=== PATIENT | female | born 1950 | race Caucasian/White ===

== ENCOUNTER → 2018-06-16 03:29 | Outpatient (CLI) | payer MEDICARE, OTHER, SELFPAY ==
[2018-06-16 10:52] LABS: Abs Immature Grans 0.01 k/cumm (0.0-0.09); Absolute Basophil Count 0.15 k/cumm (0.0-0.2); Absolute Eosinophil Count 0.79 k/cumm (0.0-0.7); Absolute Lymphocyte Count 2.09 k/cumm (1.2-3.4); Absolute Monocyte Count 0.51 k/cumm (0.11-0.7); Absolute Neutrophil Count 4.79 k/cumm (1.2-6.7); Basophils % 1.8; Eosinophils % 9.5; HCT 36.1 % (36.0-46.0); HGB 11.7 g/dL (12.0-15.5); Immature Grans % 0.1; Lymphocytes % 25.1; Mean Corp. HGB Concentration 32.4 g/dL (32.0-36.0); Mean Corpuscular Hemoglobin 28.8 pg (27.0-33.0); Mean Corpuscular Volume 88.9 fL (80-95); Mean Platelet Volume 10.4 fL (8.0-11.0); Monocytes % 6.1; Neutrophils % 57.4; Platelet Count 387 x1000/uL (130-400); RBC 4.06 m/cumm (4.00-5.20); RBC Distribution Width 13.9 % (11.7-14.6); White Blood Cell Count 8.34 k/cumm (4.4-10.8)
[2018-06-16 11:16] LABS: ALT 32 U/L (12-78); AST 21 U/L (15-37); Albumin 3.3 g/dL (3.4-5.0); Alkaline Phosphatase 103 U/L (46-116); Anion Gap 8.3 mmol/L (3-11); BUN 14 mg/dL (7-18); Bilirubin, Total 0.3 mg/dL (0.2-1.0); CO2 29.7 mmol/L (21.0-32.0); CREATININE 0.77 mg/dL (0.55-1.02); Calcium 8.6 mg/dL (8.5-10.1); Chloride 106 mmol/L (98-107); Cholesterol 326 mg/dL (50-200); Glucose 118 mg/dL (70-100); HDL Cholesterol 48 mg/dL (40-60); LDL CHOLESTEROL 242 mg/dL (<100); Potassium 3.4 mmol/L (3.5-5.1); Sodium 144 mmol/L (136-145); TSH (W/Ref FT4) 0.03 uIU/mL (0.358-3.74); Total Protein 6.6 g/dL (6.4-8.2); Triglyceride 159 mg/dL (30-150)
[2018-06-16 11:33] LABS: FREE T4 1.07 ng/dL (0.76-1.46)
== END ==
PROVIDERS: PCP Internal Medicine; Visit Provider Internal Medicine
DX: E78.5 Hyperlipidemia, unspecified (principal); R94.6 Abnormal results of thyroid function studies; I10 Essential (primary) hypertension; D64.9 Anemia, unspecified
CPT/HCPCS: 36415; 80053; 80061; 83721; 84439; 84443; 85025

== ENCOUNTER 2018-08-03 00:34 | Outpatient (CLI) | payer MEDICARE, OTHER, SELFPAY ==
--- NOTE | 2018-08-03 13:30 | DI.MAMMO_ITS ---
SYMPTOM/DIAGNOSIS: SCREENING, Z12.31 MAMMOGRAMS: Mammograms were interpreted according to the usual protocol including computer analysis with CAD system, tomosynthesis and C view imaging. Comparison with prior examinations Breast density B. No masses or microcalcifications are seen. There is nothing to suggest malignancy. IMPRESSION: Negative mammogram. Routine screening is recommended. Category I. MQSA ASSESSMENT OF FINDINGS: Negative. Category 1. Patient will receive a letter notifying them of these results. BI-RADS category B. There are scattered areas of fibroglandular density.
== END 2018-08-03 00:54 ==
PROVIDERS: PCP Internal Medicine; Visit Provider Internal Medicine
DX: Z12.31 Encounter for screening mammogram for malignant neoplasm of breast (principal)
CPT/HCPCS: 77063; 77067

== ENCOUNTER 2018-08-05 11:33 | Outpatient (CLI) | payer MEDICARE, OTHER, SELFPAY ==
--- NOTE | 2018-08-05 06:00 | DI.RAD_ITS ---
SYMPTOM/DIAGNOSIS: LUMBAR RADICULOPATHY PAIN CLINIC: Fluoroscopy Time: 18.3 SECS Images submitted from the Pain Clinic demonstrate needle positioning over the midline at the level of L5-S1 in conjunction with an injection carried out by Dr. Jarrett. Please see the procedure report for further information.
[2018-08-05 11:41] VITALS: BP 143/79; PULSE 81; RESP 18; TEMP 36.6; O2SAT 96
[2018-08-05] MEDS: methylPREDNISolone ACETATE 40 MG/ML VIAL IM (12:40)
[2018-08-05] MEDS: Omnipaque 240 MG/ML 50 ML BTL IJ (12:41)
[2018-08-05 12:43] VITALS: BP 158/79; PULSE 80; RESP 19; O2SAT 100
--- NOTE | 2018-08-05 12:43 | PDOC.PAIN ---
Pain Clinic Procedure Note Current Active Problems Problem Status Onset Spinal stenosis of lumbar region Chronic Lumbar radiculopathy Chronic CAUDAL EPIDURAL STEROID WITH CATHETER INJECTION PROCEDURE NOTE COMMENTS: Patient has severe spinal stenosis at L5-S1. She has had several epidural injections which have helped somewhat. The last one was painful and has not worked as well as. I reviewed her MRI from 2016 with her and she does central and foraminal stenosis on the left.. HARMAN KNOWLES has been referred to the [facility] for lumbar epidural steroid injection. Patient was greeted by the nurse who verified patients name and . Patient was then taken to the fluoroscopy suite. Patient was interviewed and the medical record reviewed. There were no medical, pharmacologic, radiographic, or other structural contraindications to attempting fluoroscopically guided lumbar epidural steroid injection. Risks and expected side effects as well as potential benefits of the procedure were reviewed and voiced concerns addressed. The patient consent form was signed and witnessed. Standard time-out procedure was performed. Patient was placed in the prone position on the fluoroscopy table and automated blood pressure cuff and pulse oximeter applied. The skin entry point for entering/approaching the epidural space by a {sacral hiatus} and marked. Following thorough chlorhexadine preparation of the skin and draping and 1% lidocaine infiltration of the skin entry point and subcutaneous tissues, a 17 gauge Touhy needle was placed under fluoroscopic guidance and with loss of resistance technique into the epidural space. Needle tip placement and depth were aided and confirmed by fluoroscopy. There was no paresthesia or return of blood or CSF through the needle. An Arrow cath was thread to the {L5 midline} and 1 cc's of Omnipaque 240 was injected with clear epidural spread confirmed with fluoroscopy. 80mg depomedrol was injected. There was not any unusual discomfort expressed. Vital signs were stable throughout the procedure and were as recorded in nursing records. Follow up plans and appointments were discussed.Post procedure instruction was given as documented in nursing records and having met discharge criteria and was discharged from the [facility]. COMMENTS: Patient will follow-up as needed. She gets good long-lasting relief I told her these can be repeated. She is other symptoms I suggested she see 1 of the spine surgeons at [facility] or spine surgeon of her choice. He will need an updated MRI of lumbar spine if that is the case.
--- NOTE | 2018-08-05 12:47 | PDOC.PAIN_ITS ---
Pain Clinic Procedure Note Current Active Problems Problem Status Onset Spinal stenosis of lumbar region Chronic Lumbar radiculopathy Chronic CAUDAL EPIDURAL STEROID WITH CATHETER INJECTION PROCEDURE NOTE COMMENTS: Patient has severe spinal stenosis at L5-S1. She has had several epidural injections which have helped somewhat. The last one was painful and has not worked as well as. I reviewed her MRI from 2016 with her and she does central and foraminal stenosis on the left.. HARMAN KNOWLES has been referred to the [facility] for lumbar epidural steroid injection. Patient was greeted by the nurse who verified patients name and . Patient was then taken to the fluoroscopy suite. Patient was interviewed and the medical record reviewed. There were no medical , pharmacologic, radiographic, or other structural contraindications to attempting fluoroscopically guided lumbar epidural steroid injection. Risks and expected side effects as well as potential benefits of the procedure were reviewed and voiced concerns addressed. The patient consent form was signed and witnessed. Standard time-out procedure was performed. Patient was placed in the prone position on the fluoroscopy table and automated blood pressure cuff and pulse oximeter applied. The skin entry point for entering/approaching the epidural space by a {sacral hiatus} and marked. Following thorough chlorhexadine preparation of the skin and draping and 1% lidocaine infiltration of the skin entry point and subcutaneous tissues, a 17 gauge Touhy needle was placed under fluoroscopic guidance and with loss of resistance technique into the epidural space. Needle tip placement and depth were aided and confirmed by fluoroscopy. There was no paresthesia or return of blood or CSF through the needle. An Arrow cath was thread to the {L5 midline} and 1 cc's of Omnipaque 240 was injected with clear epidural spread confirmed with fluoroscopy. 80mg depomedrol was injected. There was not any unusual discomfort expressed. Vital signs were stable throughout the procedure and were as recorded in nursing records. Follow up plans and appointments were discussed.Post procedure instruction was given as documented in nursing records and having met discharge criteria and was discharged from the [facility]. COMMENTS: Patient will follow-up as needed. She gets good long-lasting relief I told her these can be repeated. She is other symptoms I suggested she see 1 of the spine surgeons [place] [facility] [place] spine surgeon of her choice. He will need an updated MRI of lumbar spine if that is the case.
== END 2018-08-05 11:53 ==
PROVIDERS: PCP Internal Medicine; Visit Provider Anesthesiology Pain Medicine
DX: M54.16 Radiculopathy, lumbar region (principal); M48.061 Spinal stenosis, lumbar region without neurogenic claudication; G89.29 Other chronic pain
CPT/HCPCS: 62323; 72100; J1030; Q9967

== ENCOUNTER 2018-12-09 11:26 | Outpatient (CLI) | payer MEDICARE, OTHER, SELFPAY ==
[2018-12-09 13:04] LABS: Abs Immature Grans 0.01 k/cumm (0.0-0.09); Absolute Basophil Count 0.15 k/cumm (0.0-0.2); Absolute Eosinophil Count 0.62 k/cumm (0.0-0.7); Absolute Lymphocyte Count 2.41 k/cumm (1.2-3.4); Absolute Monocyte Count 0.52 k/cumm (0.11-0.7); Absolute Neutrophil Count 4.47 k/cumm (1.2-6.7); Basophils % 1.8; Eosinophils % 7.6; HCT 36.7 % (36.0-46.0); HGB 11.6 g/dL (12.0-15.5); Immature Grans % 0.1; Lymphocytes % 29.5; Mean Corp. HGB Concentration 31.6 g/dL (32.0-36.0); Mean Corpuscular Hemoglobin 28.2 pg (27.0-33.0); Mean Corpuscular Volume 89.3 fL (80-95); Mean Platelet Volume 10.3 fL (8.0-11.0); Monocytes % 6.4; Neutrophils % 54.6; Platelet Count 389 x1000/uL (130-400); RBC 4.11 m/cumm (4.00-5.20); RBC Distribution Width 13.4 % (11.7-14.6); White Blood Cell Count 8.18 k/cumm (4.4-10.8)
[2018-12-09 13:10] LABS: ALT 26 U/L (12-78); AST 16 U/L (15-37); Albumin 3.3 g/dL (3.4-5.0); Alkaline Phosphatase 107 U/L (46-116); Anion Gap 9.2 mmol/L (3-11); BUN 16 mg/dL (7-18); Bilirubin, Total 0.2 mg/dL (0.2-1.0); CO2 28.8 mmol/L (21.0-32.0); CREATININE 0.74 mg/dL (0.55-1.02); Calcium 9.1 mg/dL (8.5-10.1); Chloride 106 mmol/L (98-107); Glucose 94 mg/dL (70-100); Potassium 4.3 mmol/L (3.5-5.1); Sodium 144 mmol/L (136-145); TSH (W/Ref FT4) 0.03 uIU/mL (0.358-3.74); Total Protein 6.8 g/dL (6.4-8.2)
[2018-12-09 13:28] LABS: FREE T4 1.04 ng/dL (0.76-1.46)
[2018-12-09 14:13] LABS: ESR 40 MM/HR (0-30)
[2018-12-09 17:39] LABS: Cholesterol 320 mg/dL (50-200); HDL Cholesterol 49 mg/dL (40-60); LDL CHOLESTEROL 230 mg/dL (<100); Triglyceride 175 mg/dL (30-150)
== END 2018-12-09 11:46 ==
PROVIDERS: PCP Internal Medicine; Visit Provider Internal Medicine
DX: D64.9 Anemia, unspecified (principal); E87.6 Hypokalemia; E78.5 Hyperlipidemia, unspecified; R79.89 Other specified abnormal findings of blood chemistry; G89.29 Other chronic pain
CPT/HCPCS: 36415; 80053; 80061; 83721; 85652; 84439; 84443; 85025

== ENCOUNTER 2019-03-30 11:27 | Outpatient (CLI) | payer MEDICARE, OTHER, SELFPAY ==
--- NOTE | 2019-03-30 06:00 | DI.RAD_ITS ---
SYMPTOMS/DIAGNOSIS: LUMBAR RADICULOPATHY PAIN CLINIC LUMBAR SPINE: Fluoroscopy Time: 17.6 sec Images submitted from the Pain Clinic demonstrate positioning of a needle over the midline at the level of L5-S1 with injection of contrast material in conjunction with a lumbar epidural steroid injection.
[2019-03-30 11:58] VITALS: BP 158/89; PULSE 74; RESP 18; TEMP 36.3; O2SAT 97
[2019-03-30] MEDS: methylPREDNISolone ACETATE 40 MG/ML VIAL IJ (12:16)
[2019-03-30 12:20] VITALS: BP 158/98; PULSE 67; RESP 15; O2SAT 97
[2019-03-30] MEDS: Omnipaque 240 MG/ML 50 ML BTL IJ (12:20)
--- NOTE | 2019-03-30 12:25 | PDOC.PAIN_ITS ---
Pain Clinic Procedure Note Current Active Problems Problem Status Onset Lumbar radiculopathy Chronic Lumbar Epidural Steroid Injection Procedure Note COMMENTS: She has done very well with LESIs in the past, getting about 6-9 months of relief each time. HARMAN KNOWLES has been referred to the [facility] for lumbar epidural steroid injection. The patient was greeted by the nurse who verified patients name and . Patient was then taken to the fluoroscopy suite. The patient was interviewed and the medial record reviewed. There were no medical, pharmacologic, radiographic, or other structural contraindications to attempting fluoroscopically guided lumbar epidural steroid injection. Risks and expected side effects as well as potential benefits of the procedure were reviewed and voiced concerns expressed. The patient consent form was signed and witnessed. Standard patient time-out procedure was performed. The patient was placed in the prone position on the fluoroscopy table and automated blood pressure cuff and pulse oximeter applied. The skin entry point for entering/approaching the epidural space at L5-S1 and marked. Following thorough chlorhexadine preparation of the skin and draping and 1% lidocaine infiltration of the skin entry point and subcutaneous tissues, a 18 gauge Touhy needle was placed under fluoroscopic guidance and with loss of resistance technique into the epidural space. Needle tip placement and depth were aided and confirmed by fluoroscopy. There was no paresthesia or return of blood or CSF through the needle. 1 cc's of Omnipaque 240 was injected with clear epidural spr ead confirmed with fluoroscopy. 80mg depomedrol was injected. There was not any unusual discomfort expressed by HARMAN KNOWLES. Patient's vital signs were stable throughout the procedure and were as recorded in nursing records. Follow up plans and appointments were discussed with patient. Post procedure instruction was given as documented in nursing records and having met discharge criteria and was discharged from the [facility]. COMMENTS: This procedure can be completed up to 3 times per 12 months.
== END 2019-03-30 11:47 ==
PROVIDERS: PCP Internal Medicine; Visit Provider Preventive Medicine Occupational Medicine
DX: M54.16 Radiculopathy, lumbar region (principal)
CPT/HCPCS: 62323; 72100; J1030; Q9967

== ENCOUNTER 2019-11-15 10:03 | Outpatient (CLI) | payer MEDICARE, OTHER, SELFPAY ==
[2019-11-15 12:53] LABS: Abs Immature Grans 0.01 k/cumm (0.0-0.09); Absolute Basophil Count 0.19 k/cumm (0.0-0.2); Absolute Eosinophil Count 0.51 k/cumm (0.0-0.7); Absolute Lymphocyte Count 2.46 k/cumm (1.2-3.4); Absolute Monocyte Count 0.67 k/cumm (0.11-0.7); Absolute Neutrophil Count 4.83 k/cumm (1.2-6.7); Basophils % 2.2; Eosinophils % 5.9; HCT 37.5 % (36.0-46.0); HGB 11.9 g/dL (12.0-15.5); Immature Grans % 0.1 %; Lymphocytes % 28.4; Mean Corp. HGB Concentration 31.7 g/dL (32.0-36.0); Mean Corpuscular Hemoglobin 28.4 pg (27.0-33.0); Mean Corpuscular Volume 89.5 fL (80-95); Mean Platelet Volume 10.4 fL (8.0-11.0); Monocytes % 7.7; Neutrophils % 55.7; Platelet Count 405 x1000/uL (130-400); RBC 4.19 m/cumm (4.00-5.20); RBC Distribution Width 13.6 % (11.7-14.6); White Blood Cell Count 8.67 k/cumm (4.4-10.8)
[2019-11-15 14:44] LABS: ALT 20 U/L (14-59); AST 15 U/L (15-37); Albumin 3.5 g/dL (3.4-5.0); Alkaline Phosphatase 122 U/L (46-116); Anion Gap 9.3 mmol/L (3-11); BUN 18 mg/dL (7-18); Bilirubin, Total 0.3 mg/dL (0.2-1.0); CO2 28.7 mmol/L (21.0-32.0); CREATININE 0.76 mg/dL (0.55-1.02); Calcium 9.2 mg/dL (8.5-10.1); Calculated LDL 240 mg/dL; Chloride 105 mmol/L (98-107); Cholesterol 310 mg/dL (<200); Glucose 92 mg/dL (74-106); HDL Cholesterol 44 mg/dL (40-60); Potassium 4.3 mmol/L (3.5-5.1); Sodium 143 mmol/L (136-145); TSH (W/Ref FT4) 0.04 uIU/mL (0.36-3.74); Total Protein 6.9 g/dL (6.4-8.2); Triglyceride 132 mg/dL (<150)
[2019-11-16 15:06] LABS: FREE T4 1.01 ng/dL (0.76-1.46)
== END 2019-11-15 10:23 ==
PROVIDERS: PCP Internal Medicine; Visit Provider Internal Medicine
DX: I10 Essential (primary) hypertension (principal); R50.9 Fever, unspecified; G89.29 Other chronic pain
CPT/HCPCS: 36415; 80053; 80061; 84439; 84443; 85025

== ENCOUNTER 2020-05-11 10:48 | Outpatient (REF) | payer MEDICARE, OTHER, SELFPAY ==
[2020-05-11 13:42] LABS: *AMPHETAMINES SCREEN URINE Negative (Negative); *BARBITURATES SCREEN URINE Negative (Negative); *BENZODIAZEPINES SCREEN URINE Negative (Negative); Cannabinoids THC Negative (Negative); Cocaine Screen,Urine Negative (Negative); METHADONE URINE SCREEN Negative (Negative); OPIATES URINE SCREEN Negative (Negative)
[2020-05-11 13:46] LABS: Tricyclic Antidepressants Negative (Negative)
== END 2020-05-11 11:08 ==
LOC: LBN 10:48
PROVIDERS: PCP Nurse Practitioner; Visit Provider Nurse Practitioner
DX: G89.4 Chronic pain syndrome (principal)
CPT/HCPCS: 80307

== ENCOUNTER 2020-11-27 02:45 | Outpatient (CLI) | payer MEDICARE, OTHER, SELFPAY ==
[2020-11-27 09:20] LABS: Hemoglobin A1C 6.6 % (<5.7)
[2020-11-27 09:59] LABS: CREATININE 0.74 mg/dL (0.55-1.02); Calculated LDL 146 mg/dL (<100); Cholesterol 225 mg/dL (<200); HDL Cholesterol 50 mg/dL (40-60); Potassium 4.2 mmol/L (3.5-5.1); Triglyceride 147 mg/dL (<150)
== END 2020-11-27 03:05 ==
PROVIDERS: PCP Nurse Practitioner; Visit Provider Nurse Practitioner
DX: I10 Essential (primary) hypertension (principal); R73.03 Prediabetes
CPT/HCPCS: 36415; 80061; 82565; 83036; 84132

== ENCOUNTER 2021-02-26 03:18 | Outpatient (CLI) | payer MEDICARE, OTHER, SELFPAY ==
[2021-02-26 13:05] LABS: Hemoglobin A1C 6.4 % (<5.7)
== END 2021-02-26 03:19 | disposition home or self-care (01) ==
LOC: LOS 03:18
PROVIDERS: PCP Nurse Practitioner; Visit Provider Nurse Practitioner
DX: E11.9 Type 2 diabetes mellitus without complications (principal)
CPT/HCPCS: 36415; 83036

== ENCOUNTER 2022-01-04 02:23 | Outpatient (CLI) | payer MEDICARE, OTHER, SELFPAY ==
--- NOTE | 2022-01-04 06:45 | DI.MAMMO_ITS ---
Exam(s) MAMMO SCREENING EXAM: MAMMO SCREENING CLINICAL HISTORY: screening,z12.39. TECHNIQUE: Bilateral full field digital CC and MLO mammographic images were obtained with 3D tomosyn thesis and utilizing computer aided detection (CAD). COMPARISON: Prior mammograms were reviewed, the most recent being July 2018. FINDINGS: There are no new spiculated masses nor malignant appearing microcalcification groups. There is no significant architectural distortion nor skin thickening-retraction. IMPRESSION: No radiographic evidence of malignancy. BI-RADS Category 1 - Negative Breast Density - Category B - Scattered areas of fibroglandular density Breast density Category C or D implies that the patient has dense breast tissue. Dense breast tissue can make it harder to find cancer on a mammogram. Dense breast tissue is also associated with an incr eased risk of breast cancer. This information about the result of the mammogram report was provided to the patient to raise their awareness. Use this report when you speak with the patient about their risks for breast cancer, which includes their family history. At that time, you may recommend additional screening tests (Ultrasoun d or MRI) as these tests may add significant information. A negative radiographic report should not delay biopsy if a dominant or clinically suspicious mass is present. Up to ten percent of cancers are not identified on mammography. A negative report may reinforce clinical impression. Adenosis and dense breasts may obscure an underlying neoplasm. False positive reports average 6 to 10%. Patient will receive a letter notifying them of these results.
--- NOTE | 2022-01-04 06:45 | DI.DEXA_ITS ---
Exam(s) XR DEXA BONE DENSITY W/WO SARI EXAM: XR DEXA BONE DENSITY W/WO SARI CLINICAL HISTORY: screening for osteoporosis in postmenopausal woman,z78.0 TECHNIQUE: Routine DEXA evaluation of the lumbar spine, hip, or forearm. COMPARISON: No exams were available for comparison FINDINGS: Performed on a Hologic unit. Lateral image: No compression fracture evident. Lumbar Spine total T-score: 0.7 Hip total T-score:-1.4 Independent reading at the level of the femoral neck yields at T-score of -1.6. Forearm total T-score: -1.3 IMPRESSION: Bone mineral density measures in the osteopenia range. Fracture risk is moderate. Note: Any spine fracture indicates 5x risk for subsequent spine fracture and 2x risk for subsequent h ip fracture. World Health Organization criteria for BMD interpretation classify patients: Normal...... T- Score at or above -1.0 Osteopenic... T- Score between -1.0 and -2.5 Osteoporosis... T-Score at or below -2.5
== END 2022-01-04 02:43 ==
PROVIDERS: PCP Nurse Practitioner; Visit Provider Nurse Practitioner
DX: Z12.31 Encounter for screening mammogram for malignant neoplasm of breast (principal); M85.88 Other specified disorders of bone density and structure, other site; Z78.0 Asymptomatic menopausal state
CPT/HCPCS: 77063; 77067; 77080

== ENCOUNTER 2022-04-10 04:10 | Outpatient (CLI) | payer MEDICARE, OTHER, SELFPAY ==
[2022-04-10 12:47] LABS: Microalb ug/mg Crea 6.2 ug/mg Cr
[2022-04-10 12:49] LABS: CREATININE 0.7 mg/dL (0.55-1.02); Calculated LDL 130 mg/dL (<100); Cholesterol 207 mg/dL (<200); HDL Cholesterol 50 mg/dL (40-60); Potassium 4.6 mmol/L (3.5-5.1); Triglyceride 136 mg/dL (<150)
[2022-04-10 17:30] LABS: Hemoglobin A1C 6.5 % (<5.7)
== END 2022-04-10 04:11 | disposition home or self-care (01) ==
LOC: LBO 04:10
PROVIDERS: PCP Nurse Practitioner; Visit Provider Nurse Practitioner
DX: I10 Essential (primary) hypertension (principal); E78.2 Mixed hyperlipidemia; E11.9 Type 2 diabetes mellitus without complications
CPT/HCPCS: 36415; 80061; 82043; 82565; 82570; 83036; 84132

== ENCOUNTER 2023-01-17 07:19 | Day surgery (SDC) | payer MEDICARE, SELFPAY ==
[2023-01-17] MEDS: Tropicam./Phenyleph. (1/2.5%) 5 ML BTL OS ×3 (07:47→07:58)
[2023-01-17 07:48] VITALS: BP 121/91; PULSE 73; RESP 16; TEMP 36.2; O2SAT 97
--- NOTE | 2023-01-17 07:56 | W.ANESPRE ---
General Info Date of Service Date Performed: 01/17/23 Height: 5 ft 3 in Weight: 73.1 kg Body Mass Index (BMI): 28.5 Surgical Procedure: Operation Date: 01/17/23 09:10 Proposed Procedure Side Surgeon p Cataract Extraction with IOL Implant Left Dagoberto Yanez MD Meds Allergies and Home Medications Allergies Allergy/AdvReac Type Severity Reaction Status Date / Time lisinopril AdvReac Intermediate Cough Verified 01/17/23 07:43 atorvastatin AdvReac Unknown body aches Unverified 01/17/23 07:43 codeine AdvReac Unknown HALLUCINATI Unverified 01/17/23 07:43 ONS Home Medication Medication Instructions Recorded vadhtic-lfafihuhazkiq-bcgcfued 250 1 ea PO PRN PRN 06/19/16 mg-250 mg-65 mg tablet (Extra Pain Relief) diphenhydramine HCl 25 mg capsule See Rx Instructions PO QHS PRN 08/11/20 (Benadryl) ibuprofen 200 mg capsule 200 mg PO Q6H PRN 12/21/21 metoprolol succinate 25 mg 25 mg PO DAILY #90 tabs 01/17/22 tablet,extended release 24 hr losartan 25 mg tablet 25 mg PO DAILY #90 tabs 01/08/23 Current Visit Medications: Current Medications Generic Name Dose Route Start Last Admin Trade Name Freq PRN Reason Stop Dose Admin Acetaminophen 1,000 mg 01/17/23 06:00 Acetaminophen 500 Mg Tab PO Q4H PRN PRN Miscellaneous Medication 0 ml 01/17/23 06:00 01/17/23 07:53 Tropicam./Phenyleph. (1/2.5%) 5 Ml Btl OS 1 drp DIRECTED GLADYS Administration Miscellaneous Medication 0 ml 01/17/23 06:00 Prednisolone 1%, Moxifloxacin 0.5%, Nepafenac 0.1% 5ml Btl OS DIRECTED GLADYS Tetracaine HCl 0 ml 01/17/23 06:00 Tetracaine 0.5% 4 Ml Btl OS DIRECTED GLADYS PFSH Active Problems Active Problems: Problem Status Onset Code Spinal stenosis of lumbar region M48.061 Chronic pain 07/16/17 G89.29 Essential hypertension 09/22/13 I10 Obesity E66.9 Polyp of colon K63.5 Hyperlipidemia E78.5 Diabetes type 2, controlled E11.9 Anxiety and depression F41.9, F32.9 Medical History Medical History (Updated 01/17/23 @ 08:02 by Dagoberto Yanez MD) Acute cholecystitis (09/23/13) Fibromyalgia Headache 2-3 mm aneurysm ICA-2006 Hx of reduction of closed fracture Lumbar radiculopathy Surgical History Surgical History Fracture, Closed Treatment (~2004) left femur and right foot History of cholecystectomy History of colonoscopy History of endoscopic retrograde cholangiopancreatography Status post cholecystectomy Tobacco Smoking/Tobacco Use Status: Former Tobacco Use Passive smoking exposure: Yes Second hand exposure: Yes Alcohol Alcohol Intake: current Alcohol intake frequency: holidays/special occasions only Alcohol type: beer, wine and hard liquor Substance Use Substance use: Never Substance use type: does not use Vital Signs and Lab Results Vital Signs Most Recent Vital Signs in EMR: Most Recent Vital Signs Temp Pulse Resp BP Pulse Ox 36.2 C L 73 16 121/91 H 97 01/17/23 07:48 01/17/23 07:48 01/17/23 07:48 01/17/23 07:48 01/17/23 07:48 Lab Results Blood Type / Crossmatch: No Data to Display Complete Blood Count: No Data to Display Complete Metabolic Panel: Hemoglobin A1c 6.3 % (4.5-5.7) H 12/24/22 13:46 Liver Function Panel: No Data to Display Coagulation Panel: No Data to Display Cardiac Panel: No Data to Display Arterial Blood Gas: No Data to Display Venous Blood Gas: No Data to Display Pancreas Panel: No Data to Display Thyroid Panel: No Data to Display Infectious Disease: No Data to Display Blood Cultures: No Data to Display Toxicology Panel: No Data to Display Anesthesia Assessment and Plan Anesthesia History Personal History: No History of Anesthesia Complications Family History: No Family History of Anesthesia Complications Exercise Tolerance Exercise Tolerance: Metabolic Equivalents>4 Pertinent Negatives Pertinent Negatives: No Symptoms of GERD ( med controlled) and No Major Cardiovascular Symptoms or Complaints Cardiac & Pulmonary Exam Cardiac Exam: Normal S1/S2 Heart Sounds Pulmonary Exam: Clear Bilateral Breath Sounds Implantable Cardiac Device Does patient have a Pacemaker or an ICD?: No Airway Exam Known Difficult Airway: No Mallampati Class: 3 Mouth Opening: Normal (> 3cm) Thyromental Distance: Greater than 3 cm Neck Range of Motion: Full ROM Neck Circumference: Normal Teeth Condition: Normal Dentition and Removable Dentures/Plates Upper ASA Classification ASA Score: ASA 2 Emergency Case?: No NPO Status NPO Status: NPO Clears >2 hours, Solids >8 hours Anesthesia Plan Resuscitation Status: Full Code Anesthesia Technique: MAC Anesthesia Airway Planned: Natural Airway Monitors Used: Standard Monitors Preoperative Comments:: Requests SWATHI
[2023-01-17 07:57] VITALS: BMI 28.5
[2023-01-17] MEDS: Tetracaine 0.5% 4 ML BTL OS (09:00)
[2023-01-17] MEDS: Lidocaine 1% Pres-Free 5 ML VIAL (09:01)
[2023-01-17] MEDS: Balanced Salt Soln.-PLUS 500 ML BAG (09:01)
[2023-01-17] MEDS: Duovisc Viscoelastic System EACH 1 EACH (09:02)
[2023-01-17] MEDS: Povidone-Iodine Ophth 30 ML BTL (09:03)
[2023-01-17] MEDS: Phenylephrine/Lidocaine (15/10) MG/ML 1 ML VIAL (09:03)
[2023-01-17 09:18] VITALS: BP 121/71; PULSE 70; RESP 16; TEMP 36.1; O2SAT 95
--- NOTE | 2023-01-17 09:21 | W.PM.DSUDISC ---
Date of service: 01/17/23 Time of Service: 09:21 Discharge Plan Disposition Patient Disposition: Home Discharge Details Attending Provider: Dagoberto Yanez Primary Care Provider: Lida Mcleod Home Meds and New Rx's Prescriptions: No Action ibuprofen 200 mg capsule 200 mg PO Q6H PRN diphenhydramine HCl [Benadryl] 25 mg capsule See Rx Instructions PO QHS PRN Rx Instructions: 1-2 PO every day at bedtime PRN; losartan 25 mg tablet 25 mg PO DAILY Qty: 90 0RF metoprolol succinate 25 mg tablet extended release 24 hr 25 mg PO DAILY Qty: 90 4RF Extra Pain Relief 1 EACH tablet 1 ea PO PRN PRN Discharge Instructions Stand Alone Forms: Post-op Topical Cataract, Liset Rojas (DSU) Discharge Orders Discharge Orders: Discharge Order (Routine); Ordered 01/17/23 Ordered By: Dagoberto Yanez DS: Diagnosis Discharge Diagnosis (1) Posterior 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-related cataract of left eye: Status: Resolved (2) Nuclear sclerotic cataract of left eye: Status: Resolved
--- NOTE | 2023-01-17 09:21 | W.PM.OP ---
Date of service: 01/17/23 Time of Service: 09:21 Operative Note Operative Note DATE OF PROCEDURE: 01/17/23 PRE-OP DIAGNOSIS: Nuclear/posterior subcapsular cataract, left eye POST-OP DIAGNOSIS: same PROCEDURE: Cataract extraction using phacoemulsification with intraocular lens implant, left eye SURGEON: Dagoberto Yanez ANESTHESIA TYPE: Local By Surgeon and MAC Refer to Anesthesia Record PATHOLOGY: none sent COMPLICATIONS: None Patient was transported to: same day Patient's condition: stable Implants: Earnest Clareon [id number] Indications: Progressive decreased vision due to cataract, left eye Procedure Description: CATARACT SURGERY OPERATIVE REPORT PREOPERATIVE DIAGNOSIS: Nuclear/posterior subcapsular cataract, left eye POSTOPERATIVE DIAGNOSIS: Same OPERATION: Cataract extraction using phacoemulsification with posterior chamber intraocular lens implant, left eye. IOL: IOL Lead Burner Supervisor/Model: Earnest Clareon [id number] IOL Power: + 20.0 diopters IOL Serial Number: [id number] Optic Diameter: 6.0mm Haptic/Overall Diameter: 13.0mm PHACO INFO: EarnestMVB Bank,urion Vision System with OZil and Active Fluidics Cumulative Dispersed Energy (CDE): 13.21 seconds SURGEON: Dagoberto Yanez MD, MADDIE ANESTHESIA: Monitored Anesthesia Care (MAC), with local sub-tenon's anesthetic infiltration COMPLICATIONS: None SPECIMENS: None INDICATIONS FOR PROCEDURE: The patient is a 72-year-old lady with history of diminished visual acuity in her left eye secondary to the development of nuclear/posterior subcapsular cataract. She is significantly symptomatic that she desires cataract surgery and attempt to improve and maximize her vision. The option of cataract surgery was offered to the patient and she wished to proceed. PROCEDURE: The correct surgical eye was identified and marked as the left eye and the pupil was dilated in the preoperative area using mydriatics and cycloplegics. The dilated pupil size was 7.0 mm. Oral sedation was administered in the form of an Imprimis MKO Melt (midazolam 3mg/ketamine 25mg/ondansetron 2mg). . The patient was brought to the operating room where cardiopulmonary monitoring was instituted and surgical time-out was performed, confirming the correct operative eye and IOL power. Topical anesthesia was administered and ophthalmic povidone-iodine 5% was instilled into the conjunctival fornices. Lidocaine gel was applied to the cornea and the paco-ocular area was prepped with Betadine 10% solution and draped in the usual sterile fashion for intraocular surgery, including an aperture drape. A Tegaderm transparent film dressing was cut in half and used to cover the lashes and lid margins. Care was taken to sequester the lashes and lid margins under the Tegaderm dressing. A lid speculum was placed between the lids of the operative eye and the Earnest LuxOR Revalia operating microscope was maneuvered into position. Dustin scissors were then used to make a conjunctival buttonhole approximately 6mm posterior to the limbus in the inferonasal quadrant. Blunt dissection was carried out to expose bare sclera, and a blunt-tipped sub-tenon?s anesthesia cannula was introduced and passed posteriorly along the globe where non-preserved plain lidocaine was injected into posterior sub-Tenon?s space. A sideport knife was used to make a paracentesis port superior/superiortemporally. Intraocular phenylephrine/lidocaine was injected into the anterior chamber. The anterior chamber was then filled with viscoelastic. A keratome knife was used construct a two-plane near-clear corneal tunnel extending 2.0mm into clear cornea in the temporal position. . A flap was raised on the anterior capsule and capsulorhexis forceps were used to complete a continuous curvilinear capsulorhexis of 5.5 mm. Balanced salt solution was then used to perform cortical cleaving hydrodissection and nuclear hydrodelineation until the lens could be freely rotated within the capsular bag. The lens nucleus was then disassembled and removed within the capsular bag and iris plane using phacoemulsification. Residual cortical material was removed using the 45-degree angled silicone I/A tip with 0.3mm port. The posterior capsule was carefully polished to remove as much residual lens epithelial cells as safely possible. The capsular bag was then inflated and the anterior chamber deepened with viscoelastic. The lens implant described above was inserted into the capsular bag using the Earnest Autonome Injector. A Kuglen hook was used to dial the IOL into position. Residual viscoelastic was then removed first from posterior to the IOL, then from the anterior chamber using the I/A handpiece. The lens implant was noted to center nicely within the capsular bag. The incisions were stromally hydrated, and the anterior chamber was reformed using BSS. Then 0.5cc of moxifloxacin 1.0mg/ml were injected into the capsular bag and anterior chamber. The incisions were checked with a Weck spear and found to be secure. Several drops of ophthalmic povidone-iodine 5% were then applied to the eye followed by two drops of Imprimis combination prednisolone/moxifloxacin/nepafenac solution. The drapes were removed and a clear plastic protective eye shield was placed over the eye. The patient was then returned to Same Day Surgery in stable condition.
--- NOTE | 2023-01-17 09:31 | W.ANESPOSTOP ---
Postoperative Evaluation Date, Time and Location Date Performed: 01/17/23 Time Performed: 09:31 Patient Location: Day Surgery Unit Vital Signs Most Recent Imported Vital Signs: Most Recent Vital Signs Temp Pulse Resp BP Pulse Ox 36.1 C L 70 16 121/71 95 01/17/23 09:18 01/17/23 09:18 01/17/23 09:18 01/17/23 09:18 01/17/23 09:18 Pain Score Most Recent Pain Score: Most Recent Pain Score Pain Level 7 01/17/23 07:48 Assessment Mental Status: Awake (Alert & Oriented to Patient Baseline) Airway and Respiratory Function: Patent airway with normal (patient baseline) respiratory exam Cardiovascular Function: Hemodynamically Stable Hydration Status: Adequately Hydrated Nausea & Vomiting: No Nausea or Vomiting Pain: Pt. Denies Any Pain Peripheral Nerve Block: Patient did not receive a nerve block
[2023-01-17 09:47] VITALS: BP 127/98; PULSE 65; RESP 16; TEMP 36.2; O2SAT 100
== END 2023-01-17 09:50 | disposition home or self-care (01) ==
LOC: SUR 07:20
PROVIDERS: PCP Nurse Practitioner Family; Visit Provider Ophthalmology
PROC: (CPT 66984; principal; 2023-01-17 09:00)
DX: H25.042 Posterior subcapsular polar age-related cataract, left eye (principal)
CPT/HCPCS: 66984; V2632

== ENCOUNTER 2023-02-24 08:05 | Day surgery (SDC) | payer MEDICARE, SELFPAY ==
[2023-02-24] MEDS: Tropicam./Phenyleph. (1/2.5%) 5 ML BTL OD ×3 (08:36→08:48)
[2023-02-24 08:38] VITALS: BP 134/70; PULSE 67; RESP 16; TEMP 36.4; O2SAT 98
--- NOTE | 2023-02-24 08:49 | ANES.PREOP_ITS ---
General Info Date of Service Date Performed: 02/24/23 Height: 5 ft 3 in Weight: 77.4 kg Body Mass Index (BMI): 30.2 Surgical Procedure: Operation Date: 02/24/23 10:40 Proposed Procedure Side Surgeon p Cataract Extraction with IOL Implant Right Dagoberto Yanez MD Meds Allergies and Home Medications Allergies Allergy/AdvReac Type Severity Reaction Status Date / Time lisinopril AdvReac Intermediate Cough Verified 02/21/23 11:43 atorvastatin AdvReac Unknown body aches Unverified 02/21/23 11:43 codeine AdvReac Unknown HALLUCINATI Unverified 02/21/23 11:43 ONS Home Medication Medication Instructions Recorded [id number]-[id number] 250 1 ea PO PRN PRN 06/19/16 mg-250 mg-65 mg tablet (Extra Pain Relief) diphenhydramine HCl 25 mg capsule See Rx Instructions PO QHS PRN 08/11/20 (Benadryl) ibuprofen 200 mg capsule 200 mg PO Q6H PRN 12/21/21 losartan 25 mg tablet 25 mg PO DAILY #90 tabs 01/08/23 metoprolol succinate 25 mg 25 mg PO DAILY #90 tabs 01/27/23 tablet,extended release 24 hr diph,pertuss(acel),tet vac(PF) 0.5 ml IM ONCE #0.5 mL 02/06/23 2Lf-(2.5-5-3-5mcg)-5 Lf/0.5 mL IM susp varicella-zoster glycoE [id number] 0.5 ml IM ONCE #1 ea 02/06/23 adj(PF) 50 mcg/0.5 mL IM susp, kit (Shingrix (PF)) Current Visit Medications: Current Medications Generic Name Dose Route Start Last Admin Trade Name Freq PRN Reason Stop Dose Admin Acetaminophen 1,000 mg 02/24/23 06:00 Acetaminophen 500 Mg Tab PO Q4H PRN PRN Miscellaneous Medication 0 ml 02/24/23 06:00 02/24/23 08:48 Tropicam./Phenyleph. (1/2.5%) 5 Ml Btl OD 1 drp DIRECTED [facility] Administration Miscellaneous Medication 0 ml 02/24/23 06:00 Prednisolone 1%, Moxifloxacin 0.5%, Nepafenac 0.1% 5ml Btl OD DIRECTED [facility] Tetracaine HCl 0 ml 02/24/23 06:00 Tetracaine 0.5% 4 Ml Btl OD DIRECTED [facility] PFSH Active Problems Active Problems: Problem Status Onset Code Cortical cataract of right eye H26.9 Nuclear age-related cataract, right eye H25.11 Spinal stenosis of lumbar region M48.061 Chronic pain 07/16/17 G89.29 Essential hypertension 09/22/13 I10 Obesity E66.9 Polyp of colon K63.5 Hyperlipidemia E78.5 Diabetes type 2, controlled E11.9 Anxiety and depression F41.9, F32.9 Nuclear sclerotic cataract of left eye H25.12 Posterior 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-related cataract of left eye H25.042 Medical History Medical History Acute cholecystitis (09/23/13) Fibromyalgia Headache 2-3 mm aneurysm ICA-2006 Hx of reduction of closed fracture Lumbar radiculopathy Surgical History Surgical History Fracture, Closed Treatment (~2004) left femur and right foot History of cataract surgery History of cholecystectomy History of colonoscopy History of endoscopic retrograde cholangiopancreatography Status post cholecystectomy Tobacco Smoking/Tobacco Use Status: Former Tobacco Use Passive smoking exposure: Yes Second hand exposure: Yes Alcohol Alcohol Intake: current Alcohol intake frequency: holidays/special occasions only Alcohol type: beer, wine and hard liquor Substance Use Substance use: Never Substance use type: does not use Vital Signs and Lab Results Vital Signs Most Recent Vital Signs in EMR: Most Recent Vital Signs Temp Pulse Resp BP Pulse Ox 36.4 C L 67 16 134/70 98 02/24/23 08:38 02/24/23 08:38 02/24/23 08:38 02/24/23 08:38 02/24/23 08:38 Lab Results Blood Type / Crossmatch: No Data to Display Complete Blood Count: No Data to Display Complete Metabolic Panel: No Data to Display Liver Function Panel: No Data to Display Coagulation Panel: No Data to Display Cardiac Panel: No Data to Display Arterial Blood Gas: No Data to Display Venous Blood Gas: No Data to Display Pancreas Panel: No Data to Display Thyroid Panel: No Data to Display Infectious Disease: No Data to Display Blood Cultures: No Data to Display Toxicology Panel: No Data to Display Anesthesia Assessment and Plan Anesthesia History Personal History: No History of Anesthesia Complications Family History: No Family History of Anesthesia Complications Exercise Tolerance Exercise Tolerance: Metabolic Equivalents>4 Cardiac & Pulmonary Exam Cardiac Exam: Normal S1/S2 Heart Sounds Pulmonary Exam: Clear Bilateral Breath Sounds Implantable Cardiac Device Does patient have a Pacemaker or an ICD?: No Airway Exam Known Difficult Airway: No Mallampati Class: 3 Mouth Opening: Normal (> 3cm) Thyromental Distance: Greater than 3 cm Neck Range of Motion: Full ROM Neck Circumference: Normal Teeth Condition: Normal Dentition and Removable Dentures/Plates Upper ASA Classification ASA Score: ASA 3 Emergency Case?: No NPO Status NPO Status: NPO Clears >2 hours, Solids >8 hours Anesthesia Plan Resuscitation Status: Full Code Anesthesia Technique: MAC Anesthesia Airway Planned: Natural Airway Monitors Used: Standard Monitors
[2023-02-24 08:50] VITALS: BMI 30.2
--- NOTE | 2023-02-24 09:05 | HPE_ITS ---
Assessment and Plan Assessment and plan (1) Cortical cataract of right eye: Status: Acute Assessment and plan: Assessment: Visually significant cataract of the right eye. Plan: Cataract extraction with lens implantation of the right eye. (2) Nuclear age-related cataract, right eye: Status: Acute Assessment and plan: Assessment: Visually significant cataract of the right eye. Plan: Cataract extraction with lens implantation of the right eye. History of Present Illness History of Present Illness Chief Complaint: Progressive decreased vision, right eye Narrative: The patient is a 72-year-old lady with history of visual acuity in both eyes secondary to the development of bilateral cataracts. She has already undergone cataract surgery in the left eye on 01/17/2023. She is doing well postoperatively, and now presents for cataract surgery in the right eye. Review of Systems All systems reviewed & are unremarkable except as noted in HPI and below PFSH All Active Problems Cortical cataract of right eye (Acute) Nuclear age-related cataract, right eye (Acute) Spinal stenosis of lumbar region (Chronic) Renewed her medication. Chronic pain (Acute 07/16/17) managed with NSAID's Essential hypertension (Acute 09/22/13) Obesity (Acute) Polyp of colon (Acute) hyperplastic Hyperlipidemia (Acute) Crestor Diabetes type 2, controlled (Acute) Anxiety and depression (Chronic) Medical History Acute cholecystitis (09/23/13) Fibromyalgia Headache 2-3 mm aneurysm ICA-2006 Hx of reduction of closed fracture Lumbar radiculopathy Surgical History Fracture, Closed Treatment (~2004) left femur and right foot History of cataract surgery History of cholecystectomy History of colonoscopy History of endoscopic retrograde cholangiopancreatography Status post cholecystectomy Family History Mother Kidney disease Neoplasm LUNG Father Stroke Sister Essential hypertension Heart disease Hyperlipidemia Grandfather Neoplasm Grandfather No problems noted. Grandmother COPD (chronic obstructive pulmonary disease) Grandmother , CHILDBIRTH at age 30. No problems noted. Sister Essential hypertension Depression Heart disease Sister Essential hypertension Depression Hyperlipidemia Son No problems noted. Son No problems noted. Daughter No problems noted. Social History Smoking/Tobacco Use Status: Former Tobacco Use Quit Date: 11/10/72 Second Hand Exposure: Yes Smoking risk assessment performed?: Yes Alcohol Intake: current Alcohol Intake frequency: holidays/special occasions only Alcohol type: beer, wine and hard liquor Drug use: Never Substance use type: does not use Caregiver/Support person: No Household members: spouse and family Housing: house Communication Needs: Corrective Lenses Do you need help understanding health information?: Often Pets and animals: Yes Pets and animals: cat(s) Sexually active: No Do you think of yourself as: straight/heterosexual What is your relationship status?: How often do you talk on the phone with friends or family?: three or more times per week How often do you attend yazidism or denominational services?: 1-3 times per year Do you belong to any clubs or organized social groups?: no Panel score (0-1 are the most socially isolated patients): 2 What type of physical activity do you participate in: none Alanna/Sikhism: No preference Special alanna needs: No Seatbelt use: always Helmet use: No Drive intox or ride 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 Do you feel safe at home: Yes Do you feel safe in your relationship?: Yes Victim of physical abuse: No Victim of emotional abuse: No Victim of sexual abuse: No Would you like helpful sources: No Meds Allergies and Home Medications Allergies Allergy/AdvReac Type Severity Reaction Status Date / Time lisinopril AdvReac Intermediate Cough Verified 02/21/23 11:43 atorvastatin AdvReac Unknown body aches Unverified 02/21/23 11:43 codeine AdvReac Unknown HALLUCINATI Unverified 02/21/23 11:43 ONS Home Medications Medication Instructions Recorded Confirmed Type kjqujkv-dmtqithflhqzv-ozaduzbk 250 1 ea PO PRN PRN 06/19/16 02/24/23 History mg-250 mg-65 mg tablet (Extra Pain Relief) diphenhydramine HCl 25 mg capsule See Rx Instructions PO QHS PRN 08/11/20 02/24/23 History (Benadryl) ibuprofen 200 mg capsule 200 mg PO Q6H PRN 12/21/21 02/24/23 History losartan 25 mg tablet 25 mg PO DAILY #90 tabs 01/08/23 02/24/23 Rx metoprolol succinate 25 mg 25 mg PO DAILY #90 tabs 01/27/23 02/24/23 Rx tablet,extended release 24 hr diph,pertuss(acel),tet vac(PF) 0.5 ml IM ONCE #0.5 mL 02/06/23 02/06/23 Rx 2Lf-(2.5-5-3-5mcg)-5 Lf/0.5 mL IM susp varicella-zoster glycoE vacc-[id number] 0.5 ml IM ONCE #1 ea 02/06/23 02/06/23 Rx adj(PF) 50 mcg/0.5 mL IM susp, kit (Shingrix (PF)) Exam Eyes Other: Most recent examination reveals corrected visual acuity of 20/25 right eye, 20/50 left eye. Intraocular pressure is 12 OU. Extraocular motility is normal. Slit-lamp examination reveals 2+ nuclear with trace cortical cataract in the ri ght eye. There is a well-positioned PCIOL with clear posterior capsule in the left eye. Funduscopic examination reveals disc cupping of 0.35 OU with normal vessels, macula, peripheral retina and vitreous. Resp Auscultation: clear to auscultation bilaterally Cardio Rate: regular rate Rhythm: regular rhythm Results Last Vital Signs Temp 36.4 C L 02/24/23 08:38 Pulse 67 02/24/23 08:38 Resp 16 02/24/23 08:38 BP 134/70 02/24/23 08:38 Pulse Ox 98 02/24/23 08:38
[2023-02-24] MEDS: Tetracaine 0.5% 4 ML BTL OD (09:22)
[2023-02-24] MEDS: Balanced Salt Soln.-PLUS 500 ML BAG (09:31)
[2023-02-24] MEDS: Duovisc Viscoelastic System EACH 1 EACH (09:31)
[2023-02-24] MEDS: Lidocaine 1% Pres-Free 5 ML VIAL (09:32)
[2023-02-24] MEDS: Povidone-Iodine Ophth 30 ML BTL (09:33)
[2023-02-24] MEDS: Phenylephrine/Lidocaine (15/10) MG/ML 1 ML VIAL (09:33)
[2023-02-24 09:45] VITALS: BP 146/89; PULSE 69; RESP 18; TEMP 36.8; O2SAT 96
--- NOTE | 2023-02-24 09:48 | ROE_ITS ---
Date of service: 02/24/23 Time of Service: 09:48 Operative Note Operative Note DATE OF PROCEDURE: 02/24/23 PRE-OP DIAGNOSIS: Nuclear/cortical cataract, right eye POST-OP DIAGNOSIS: same PROCEDURE: Cataract extraction using phacoemulsification with intraocular lens implant, right eye SURGEON: Dagoberto Yanez ANESTHESIA TYPE: Local By Surgeon and MAC Refer to Anesthesia Record ESTIMATED BLOOD LOSS: 0 PATHOLOGY: none sent COMPLICATIONS: None Patient was transported to: same day Patient's condition: stable Implants: Earnest Clareon [id number] Indications: Progressive decreased vision due to cataract, right eye Procedure Description: CATARACT SURGERY OPERATIVE REPORT PREOPERATIVE DIAGNOSIS: Nuclear/cortical cataract, right eye POSTOPERATIVE DIAGNOSIS: Same OPERATION: Cataract extraction using phacoemulsification with posterior chamber intraocular lens implant, right eye. IOL: IOL Vest Finisher/Model: Earnest Clareon [id number] IOL Power: + 19.5 diopters IOL Serial Number: [id number] Optic Diameter: 6.0mm Haptic/Overall Diameter: 13.0mm PHACO INFO: Earnest Sinopsys Surgicalurion Vision System with OZil and Active Fluidics Cumulative Dispersed Energy (CDE): 6.44 seconds SURGEON: Dagoberto Yanez MD, MADDIE ANESTHESIA: Monitored Anesthesia Care (MAC), with local sub-tenon's anesthetic infiltration COMPLICATIONS: None SPECIMENS: None INDICATIONS FOR PROCEDURE: The patient is a 72-year-old lady with history of diminished visual acuity in both eyes secondary to the development of bilateral nuclear/cortical cataract. She has already undergone cataract surgery in the left eye and is doing well postoperatively. She now presents for cataract surgery in the right eye. PROCEDURE: The correct surgical eye was identified and marked as the right eye and the pupil was dilated in the preoperative area using mydriatics and cycloplegics. The dilated pupil size was 7.0 mm. The patient elected to proceed without oral sedation. The patient was brought to the operating room where cardiopulmonary monitoring was instituted and surgical time-out was performed, confirming the correct operative eye and IOL power. Topical anesthesia was administered and ophthalmic povidone-iodine 5% was instilled into the conjunctival fornices. Lidocaine gel was applied to the cornea and the paco-ocular area was prepped with Betadine 10% solution and draped in the usual sterile fashion for intraocular surgery, including an aperture drape. A Tegaderm transparent film dressing was cut in half and used to cover the lashes and lid margins. Care was taken to sequester the lashes and lid margins under the Tegaderm dressing. A lid speculum was placed between the lids of the operative eye and the Jerson-Heather operating microscope was maneuvered into position. Dustin scissors were then used to make a conjunctival buttonhole approximately 6mm posterior to the limbus in the inferonasal quadrant. Blunt dissection was carried out to expose bare sclera, and a blunt-tipped sub-tenon?s anesthesia cannula was introduced and passed posteriorly along the globe where non- preserved plain lidocaine was injected into posterior sub-Tenon?s space. A sideport knife was used to make a paracentesis port inferiortemporally. In traocular phenylephrine/lidocaine was injected into the anterior chamber. The anterior chamber was then filled with viscoelastic. A keratome knife was used to construct a two--plane near-clear corneal tunnel extending 2.0mm into clear cornea in the superiortemporal position.. A flap was raised on the anterior capsule and capsulorhexis forceps were used to complete a continuous curvilinear capsulorhexis of 5.5 mm. Balanced salt solution was then used to perform cortical cleaving hydrodissection and nuclear hydrodelineation until the lens could be freely rotated within the capsular bag. The lens nucleus was then disassembled and removed within the capsular bag and iris plane using phacoemulsification. Residual cortical material was removed using the I/A handpiece. The posterior capsule was carefully polished to remove as much residual lens epithelial cells as safely possible. The capsular bag was then inflated and the anterior chamber deepened with viscoelastic. The lens implant described above was inserted into the capsular bag using the Earnest Autonome Injector. A Kuglen hook was used to dial the IOL into position. Residual viscoelastic was then removed first from posterior to the IOL, then from the anterior chamber using the I/A handpiece. The lens implant was noted to center nicely within the capsular bag. The incisions were stromally hydrated, and the anterior chamber was reformed using BSS. Then 0.5cc of moxifloxacin 1.0mg/ml were injected into the capsular bag and anterior chamber. The incisions were checked with a Weck spear and found to be secure. Several drops of ophthalmic povidone-iodine 5% were then applied to the eye followed by two drops of Imprimis combination prednisolone/moxifloxacin/nepafenac solution. The drapes were removed and a clear plastic protective eye shield was placed over the eye. The patient was then returned to Same Day Surgery in stable condition.
--- NOTE | 2023-02-24 09:48 | W.PM.DSUDISC ---
Date of service: 02/24/23 Time of Service: 09:48 Discharge Plan Disposition Patient Disposition: Home Discharge Details Attending Provider: Dagoberto Yanez Primary Care Provider: Lida Mcleod Home Meds and New Rx's Prescriptions: No Action ibuprofen 200 mg capsule 200 mg PO Q6H PRN Shingrix (PF) 50 mcg/0.5 mL suspension for reconstitution 0.5 ml IM ONCE Qty: 1 1RF Rx Instructions: as a single dose diph,pertuss(acel),tet vac(PF) 2 Lf-(2.5-5-3-5 mcg)-5Lf/0.5 mL suspension 0.5 ml IM ONCE Qty: 0.5 0RF Rx Instructions: as a single dose diphenhydramine HCl [Benadryl] 25 mg capsule See Rx Instructions PO QHS PRN Rx Instructions: 1-2 PO every day at bedtime PRN; losartan 25 mg tablet 25 mg PO DAILY Qty: 90 0RF metoprolol succinate 25 mg tablet extended release 24 hr 25 mg PO DAILY Qty: 90 4RF Extra Pain Relief 1 EACH tablet 1 ea PO PRN PRN Discharge Instructions Stand Alone Forms: Post-op Topical Cataract, Liset Rojas (DSU) Discharge Orders Discharge Orders: Discharge Order (Routine); Ordered 02/24/23 Ordered By: Dagoberto Yanez DS: Diagnosis Discharge Diagnosis (1) Cortical cataract of right eye: Status: Resolved (2) Nuclear age-related cataract, right eye: Status: Resolved
--- NOTE | 2023-02-24 10:12 | W.ANESPOSTOP ---
Postoperative Evaluation Date, Time and Location Date Performed: 02/24/23 Time Performed: 10:00 Patient Location: Day Surgery Unit Vital Signs Most Recent Imported Vital Signs: Most Recent Vital Signs Temp Pulse Resp BP Pulse Ox 36.8 C 69 18 146/89 H 96 02/24/23 09:45 02/24/23 09:45 02/24/23 09:45 02/24/23 09:45 02/24/23 09:45 Pain Score Most Recent Pain Score: Most Recent Pain Score Pain Level 0 02/24/23 09:45 Assessment Mental Status: Awake (Alert & Oriented to Patient Baseline) Airway and Respiratory Function: Patent airway with normal (patient baseline) respiratory exam Cardiovascular Function: Hemodynamically Stable Hydration Status: Adequately Hydrated Nausea & Vomiting: No Nausea or Vomiting Pain: Pt. Denies Any Pain Peripheral Nerve Block: Patient did not receive a nerve block
== END 2023-02-24 09:59 | disposition home or self-care (01) ==
LOC: SUR 08:06
PROVIDERS: PCP Nurse Practitioner Family; Visit Provider Ophthalmology
PROC: (CPT 66984; principal; 2023-02-24 10:30)
DX: H25.11 Age-related nuclear cataract, right eye (principal); Z98.42 Cataract extraction status, left eye
CPT/HCPCS: 66984; V2632

== ENCOUNTER → 2024-01-02 00:41 | Outpatient (CLI) | payer MEDICARE, SELFPAY ==
--- NOTE | 2024-01-02 07:00 | DI.MAMMO_ITS ---
Exam(s) MAMMO SCREENING EXAM: MAMMO SCREENING CLINICAL HISTORY: screening,Z12.39 TECHNIQUE: Bilateral full field digital CC and MLO mammographic images were obtained with 3D tomosyn thesis and utilizing computer aided detection (CAD). COMPARISON: Available for comparison. FINDINGS: Masses/Architectural Distortion: There is a new 1 cm nodule in the upper outer quadrant of the right breast. There is a thin calcification in the wall. No areas of architectural distortion is seen. Microcalcifications: No suspicious pleomorphic-type are seen. Skin Thickening/Nipple Retraction: None. IMPRESSION: 1. New 1 cm nodule in the upper outer quadrant of the right breast. 2. Spot compression views are requested for further evaluation. Ultrasound should be obtained at galindo t time. BI-RADS Category 0 - Assessment Incomplete: Need additional imaging evaluation Breast Density - Category B - Scattered areas of fibroglandular density Breast density category C or D implies that the patient has dense breast tissue. Dense breast tissue is very common and is not abnormal but dense breast tissue can make it harder to find cancer on a ma mmogram. Also, dense breast tissue may increase their breast cancer risk. This information about the result of the mammogram report was provided to the patient to raise their awareness. Use this report when you speak with the patient about their risks for breast cancer, which includes their family hist ory. At that time, you may recommend for more screening tests (Ultrasound or MRI) as they might be us eful based on their risk. A negative radiographic report should not delay biopsy if a dominant or clinically suspicious mass is present. Up to ten percent of cancers are not identified on mammography. A negative report may reinforce clinical impression. Adenosis and dense breasts may obscure an underlying neoplasm. False positive reports average 6 to 10%. Patient will receive a letter notifying them of these results.
== END ==
PROVIDERS: PCP Nurse Practitioner Family; Visit Provider Nurse Practitioner Family
DX: Z12.31 Encounter for screening mammogram for malignant neoplasm of breast (principal)
CPT/HCPCS: 77063; 77067

== ENCOUNTER 2024-01-02 12:59 | Outpatient (CLI) | payer MEDICARE, SELFPAY ==
[2024-01-02 12:31] LABS: HCT 38.6 % (36.0-46.0); MCH 26.7 pg (27.0-33.0); MCHC 31.1 % (32.0-36.0); MCV 86 fL (80-95); MPV 9.4 fL (8.0-11.0); Platelet Count 386 10^3/uL (130-400); RBC 4.49 10^6/uL (3.93-5.22); RDW 14.2 % (11.7-14.6); RDW-SD 44.7 fL; WBC 9.45 10^3/uL (4.4-10.8)
[2024-01-02 12:47] LABS: Hemoglobin A1C 6.2 % (<5.7)
[2024-01-02 13:00] LABS: ALT 28 U/L (14-59); AST 18 U/L (15-37); Albumin 3.3 g/dL (3.4-5.0); Alkaline Phosphatase 120 U/L (46-116); BUN 14 mg/dL (7-18); Bilirubin, Total 0.3 mg/dL (0.2-1.0); CREATININE 0.8 mg/dL (0.55-1.02); Calcium 9.4 mg/dL (8.5-10.1); Calculated LDL 184 mg/dL (<100); Chloride 106 mmol/L (98-107); Cholesterol 282 mg/dL (<200); Estimated GFR 78.72 (mL/min/1.73m2); Glucose 101 mg/dL (74-106); HDL Cholesterol 48 mg/dL (40-60); Potassium 3.9 mmol/L (3.5-5.1); Sodium 144 mmol/L (136-145); Total Protein 7.9 g/dL (6.4-8.2); Triglyceride 253 mg/dL (<150)
== END 2024-01-02 13:00 | disposition home or self-care (01) ==
LOC: LBO 13:00
PROVIDERS: PCP Nurse Practitioner Family; Visit Provider Nurse Practitioner Family
DX: F41.9 Anxiety disorder, unspecified (principal); E11.9 Type 2 diabetes mellitus without complications; G89.29 Other chronic pain; E78.5 Hyperlipidemia, unspecified; K63.5 Polyp of colon; I10 Essential (primary) hypertension; E66.9 Obesity, unspecified; E78.2 Mixed hyperlipidemia
CPT/HCPCS: 36415; 80053; 80061; 85027; 83036

== ENCOUNTER → 2024-01-12 03:09 | Outpatient (CLI) | payer MEDICARE, SELFPAY ==
--- NOTE | 2024-01-12 09:50 | DI.MAMMO_ITS ---
Exam(s) MAMMO SCREEN CALL BACK UNI EXAM: MAMMO SCREEN CALL BACK UNI CLINICAL HISTORY: F/U ABNL MAMMO, RT BREAST NODULE UOQ,R92.8 TECHNIQUE: Spot compression views with tomographic imaging were performed of the right breast. COMPARISON: 2014 through recent exam of 27/01January 03 FINDINGS: There is a peripherally calcified nodule in the anterior upper outer quadrant, consistent with an oil cyst. Other smaller oil cysts are also seen in both breasts.No suspicious masses or suspicious micro calcifications are seen. IMPRESSION: BI-RADS Category 2 - Benign Findings Yearly screening mammography is recommended. Breast Density - Category B, scattered fibroglandular densities.
== END ==
PROVIDERS: PCP Nurse Practitioner Family; Visit Provider Nurse Practitioner Family
DX: Z12.31 Encounter for screening mammogram for malignant neoplasm of breast (principal); R92.8 Other abnormal and inconclusive findings on diagnostic imaging of breast
CPT/HCPCS: 77063; 77067

== ENCOUNTER 2024-12-30 11:12 | Outpatient (CLI) | payer MEDICARE, SELFPAY ==
[2024-12-30 12:32] LABS: HCT 37.1 % (36.0-46.0); HGB 11.8 g/dL (11.2-15.7); MCH 27.1 pg (27.0-33.0); MCHC 31.8 % (32.0-36.0); MCV 85 fL (80-95); MPV 9.8 fL (8.0-11.0); Platelet Count 455 10^3/uL (130-400); RBC 4.35 10^6/uL (3.93-5.22); RDW 13.6 % (11.7-14.6); RDW-SD 42.7 fL
[2024-12-30 14:36] LABS: ALT 14 U/L (14-59); AST 15 U/L (15-37); Albumin 3.3 g/dL (3.4-5.0); Alkaline Phosphatase 134 U/L (46-116); BUN 13 mg/dL (7-18); Bilirubin, Total 0.38 mg/dL (0.2-1.0); CREATININE 0.7 mg/dL (0.55-1.02); Calcium 9.7 mg/dL (8.5-10.1); Calculated LDL 184 mg/dL (<100); Chloride 107 mmol/L (98-107); Cholesterol 253 mg/dL (<200); Estimated GFR 91.83 (mL/min/1.73m2); Glucose 108 mg/dL (74-106); HDL Cholesterol 55 mg/dL (40-60); Potassium 4.1 mmol/L (3.5-5.1); Sodium 142 mmol/L (136-145); Total Protein 7.9 g/dL (6.4-8.2); Triglyceride 72 mg/dL (<150)
[2024-12-30 14:38] LABS: TSH (W/Ref FT4) < 0.01 uIU/mL (0.36-3.74)
[2024-12-30 14:49] LABS: Hemoglobin A1C 6.3 % (<5.7)
[2024-12-30 15:30] LABS: FREE T4 1.89 ng/dL (0.76-1.46)
[2024-12-30 18:11] LABS: T3,Free 5.9 pg/mL (2.8-5.3)
[2024-12-30 19:08] LABS: Thyroglobulin Antibody 17 U/mL (<=60); Thyroperoxidase Antibody <28 U/mL (<=60)
== END 2024-12-30 11:13 | disposition home or self-care (01) ==
LOC: LOS 11:13
PROVIDERS: PCP Nurse Practitioner Family; Referring Provider Nurse Practitioner Family; Visit Provider Nurse Practitioner Family
DX: E05.90 Thyrotoxicosis, unspecified without thyrotoxic crisis or storm (principal); I10 Essential (primary) hypertension; E78.2 Mixed hyperlipidemia; E11.9 Type 2 diabetes mellitus without complications; F41.9 Anxiety disorder, unspecified; F32.9 Major depressive disorder, single episode, unspecified
CPT/HCPCS: 36415; 80053; 80061; 85027; 86376; 83036; 84439; 84443; 84481

== ENCOUNTER 2025-03-21 02:21 | Outpatient (CLI) | payer MEDICARE, SELFPAY ==
--- NOTE | 2025-03-21 07:15 | DI.US_ITS ---
Exam(s) US THYROID EXAM: US THYROID CLINICAL HISTORY: hyperthyroidism,e05.90. TECHNIQUE: Ultrasound thyroid performed using standard protocol. COMPARISON: No exams were available for comparison FINDINGS: ISTHMUS: 4 mm RIGHT LOBE: Size: 4.2 x 1.7 x 1.8 cm Echogenicity: Normal. Vascularity: Normal. Nodules: There are multiple nodule seen throughout the thyroid gland. There is a 1.4 x 0.8 x 1.3 cm solid isoechoic nodule in the inferior pole of the right lobe. This is consistent with a TI rads lev el 3 nodule. Due to its size, no follow-up or FNA is recommended at this time. There is a 0.7 x 0.3 x 0.7 cm solid hypoechoic nodule in the inferior pole of the right lobe. Punctate echogenic foci ar e seen. This is consistent with a TI rads level 5 nodule. Due to its size, follow-up is recommended . LEFT LOBE: Size: 4.5 x 1.8 x 2.0 cm Echogenicity: Normal. Vascularity: Normal. Nodules: Multiple nodules are visualized. There is a 2.8 x 1.9 x 1.7 cm solid hypoechoic nodule in t he inferior pole. It is taller than wide and contained a macro calcification. It is consistent with a TI rads 5 level nodule. Due to its size, FNA is recommended. OTHER FINDINGS: Normal lymph nodes are seen in the soft tissues. IMPRESSION: 1. Multinodular thyroid gland. 2. TI rads level 5 nodule in the inferior pole of the left lobe. Due to its size, FNA is recommended . DATA REPOSITORY:
== END 2025-03-21 02:41 ==
LOC: DI 02:21
PROVIDERS: PCP Nurse Practitioner Family; Visit Provider Nurse Practitioner Family
DX: E05.90 Thyrotoxicosis, unspecified without thyrotoxic crisis or storm (principal)
CPT/HCPCS: 76536